=== PATIENT | female | born 1960 | race Caucasian/White ===

== ENCOUNTER 2017-04-01 17:36 | Emergency (ER) | payer OTHER ==
[2017-04-01 17:42] VITALS: BP 153/76; TEMP 98.2; BMI 27.9
[2017-04-01] MEDS ORDERED: KETOROLAC TROMETHAMINE 60 MG/2 ML VIAL IM ONE ×2 (18:12→18:13)
[2017-04-01] MEDS ORDERED: KETOROLAC TROMETHAMINE 60 MG/2 ML VIAL ONE (18:14)
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
[2017-04-01 18:21] VITALS: PULSE 93
== END 2017-04-01 18:49 | disposition home or self-care (01) ==
LOC: JERFT 17:36
PROC: 3E0233Z Introduction of Anti-inflammatory into Muscle, Percutaneous Approach (ICD-10-PCS; principal; 2017-04-01)
DX: S39.012A Strain of muscle, fascia and tendon of lower back, initial encounter (principal); V59.59XA Passenger in pick-up truck or van injured in collision with other motor vehicles in traffic accident, initial encounter; Y92.414 Local residential or business street as the place of occurrence of the external cause; Y93.89 Activity, other specified; Y99.9 Unspecified external cause status
CPT/HCPCS: 99281-25

== ENCOUNTER 2018-01-18 16:18 | Emergency (ER) | payer OTHER ==
--- NOTE | 2018-01-18 16:21 | PDOC ---
Rapid Medical Evaluation Time Seen by Provider: 01/18/18 16:20 Medical Evaluation: Allergies Allergy/AdvReac Type Severity Reaction Status Date / Time No Known Allergies Allergy Verified 04/01/17 17:41 01/18/18 16:20 I have performed a brief in-person evaluation of this patient. The patient presents with a chief complaint of: URI symptoms x > 1 month, completed 2 courses of abx within the month. H/o thyroid "inflammation" not on meds Pertinent physical exam findings:stable w/ unremarkable exam I have ordered the following: nothing The patient will proceed to the ED for further evaluation. 01/18/18 16:26
[2018-01-18 16:27] VITALS: BP 157/93; PULSE 89; TEMP 98.2; BMI 26.5
--- NOTE | 2018-01-18 17:08 | PDOC ---
History of Present Illness - General Chief Complaint: Cold Symptoms Stated Complaint: COLD SYMPTOMS Time Seen by Provider: 01/18/18 16:20 History Source: Patient Exam Limitations: No Limitations - History of Present Illness Initial Comments: 01/18/18 21:41 This 57-year-old female is presenting to the emergency room with complaints of sinus pressure. She is states that she's been sick for the last 6-8 weeks where she is attempted several times to see her doctor and take antibiotics such as amoxicillin and Zmax as well as [id number] sinus relief without any relief. She still states that she feels extremely dry her mouth is constantly dry as well as some sinus pressure. She has not taken any medications in the last 2-3 days. Past History - Past Medical History Allergies/Adverse Reactions: Allergies Allergy/AdvReac Type Severity Reaction Status Date / Time No Known Allergies Allergy Verified 01/18/18 16:20 Home Medications: Ambulatory Orders NK [No Known Home Medication] 01/18/18 COPD: No DVT: No Thyroid Disease: No ("inflamed thryroid") - Surgical History Cholecystectomy: Yes - Immunization History Immunization Up to Date: Yes - Suicide/Smoking/Psychosocial Hx Smoking History: Never smoked Information on smoking cessation initiated: No Hx Alcohol Use: No Drug/Substance Use Hx: No Substance Use Type: None Review of Systems - Review of Systems Able to Perform ROS?: Yes Comments:: 01/18/18 21:42 General statement: Sinusitis Hematology: neg history of bleeding/blood thinners Skin: Neg for lesions, rash, bruising. HEENT: Nasal congestion with dry sinuses Respiratory: Neg SOB or difficulty in breathing Cardiac: Neg chest pain GI: Neg pain, n/v : Neg problems on voiding MS: Neg for joint pain/stiffness, no edema Neuro: Neg for LOC, weakness, Endocrine: Neg for excess thirst/hunger, cold/heat intolerance, excess sweating Allergies: Neg for allergies *Physical Exam - Vital Signs Last Vital Signs Temp Pulse Resp BP Pulse Ox 98.2 F 89 15 157/93 97 01/18/18 16:21 01/18/18 16:21 01/18/18 16:21 01/18/18 16:21 01/18/18 16:21 - Physical Exam Comments: 01/18/18 21:42 General Appearance: This well appearing 37-year-old female V/S: hemodynamically stable, afebrile Skin: WNL of pt's skin color, no signs of pallor, mottling, cyanosis Head:symmetrical Eyes: EOM's intact, PERRLA Ears: denies pain Nose: patent with dry nasal passages and some minor facial pain Throat: lips, teeth, gums, tongue, buccal mucos pink and and states it feels dry Lungs: Chest symmetry equal. Cap refill <3 seconds. Lung sounds clear Cardiac: PMI at R 4MCL space, pos S1 and S2, regular rate. Abdomen: Soft, round, nontender : Not observed Muscularskeletal: Gait steady, ambulated in to ER, no edema +PMS Neuro: AAOx3, cognitively intact, speech clear and appropriate. Medical Decision Making - Medical Decision Making 01/18/18 21:43 Patient initially seen and examined. Patient has been taking nasal decongestant medications although she does not have hypertension she is noted to have a slight bump in her blood pressure. I explained that she needs to stop taking them and she should use nasal saline as well as a little bit of bacitracin in the nasal airways and a humidifier. She should follow-up with an [facility] for them in to scope and see the nasal passages as well as the rest of her cavities. *DC/Admit/Observation/Transfer Diagnosis at time of Disposition: Sinus complaint - Discharge Dispostion Disposition: HOME Condition at time of disposition: Stable Admit: No - Referrals Referrals: Nasreen Sawyer [Primary Care Provider] - - Patient Instructions Printed Discharge Instructions: How to Avoid a Cold or Flu Additional Instructions: Discharge instructions 1. Please follow up with your primary physician within the next few days and explain that you have been seen here in the Emergency Room. Please call [facility] for evaluate of your sinuses. 2. If you experience any worsening of symptoms, call your doctor. 3. Rest, use normal saline nasal spray as needed to moisture nares 4. Drink plenty of water - Post Discharge Activity
== END 2018-01-18 17:25 | disposition home or self-care (01) ==
LOC: JER 16:18 → JERFT 16:18
DX: J34.89 Other specified disorders of nose and nasal sinuses (principal)
CPT/HCPCS: 99281-25

== ENCOUNTER 2024-09-15 21:32 | Emergency (ER) | payer OTHER ==
[2024-09-15 21:55] VITALS: BP 147/91; RESP 18; TEMP 98.2; BMI 26.4
[2024-09-15 22:47] VITALS: PULSE 79
== END 2024-09-15 22:47 | disposition home or self-care (01) ==
LOC: JER 21:32 → JERFT 21:32
DX: S93.401A Sprain of unspecified ligament of right ankle, initial encounter (principal); M65.271 Calcific tendinitis, right ankle and foot; W01.0XXA Fall on same level from slipping, tripping and stumbling without subsequent striking against object, initial encounter
CPT/HCPCS: 99283-25